=== PATIENT | male | born 2000 | race Caucasian/White ===

== ENCOUNTER 2025-04-13 12:44 | Emergency (ER) | payer OTHER, SELFPAY ==
--- NOTE | ~2025-04-13 | US_ITS ---
Clinical history:Left testicular pain for one day. Nausea and vomiting. EXAM:Ultrasound scrotum Doppler TECHNIQUE:Multiple static grayscale images and color Doppler images were obtained of the scrotum. Comparisons:None FINDINGS: Right testicle measures 4.8 x 1.9 x 2.5 cm. The right epididymis is unremarkable. Tiny right-sided hydrocele. Normal vascular flow in the right testicle. No testicular mass identified. Left testicle measures 4.3 x 3.0 x 2.7 cm. Left epididymis is heterogeneous and enlarged. Moderate sized complicated left-sided hydrocele. Prominent vascular flow in the left testicle. No testicular mass identified. No varicocele identified. IMPRESSION: 1. Sonographic findings suggest left-sided epididymoorchitis. Recommend follow- up to resolution. 2. Moderate-sized complicated left-sided hydrocele. Reviewed, dictated and finalized at location [facility].
[2025-04-13 12:47] VITALS: BP 136/64; PULSE 58; RESP 17; TEMP 36.6; O2SAT 100
--- NOTE | 2025-04-13 13:04 | PC.NURSE ---
Pt given urine cup and asked to give urine sample.
[2025-04-13 14:00] LABS: Add Urine Microscopic? YES; Appearance Urine Turbid (Clear); Glucose Urine UA Negative (Negative); Leukocyte Esterase Ur Negative LEU/UL (Negative); Nitrate Urine Negative (Negative); Non Pathogenic Casts 0-2; Specific Grav Ur 1.025 (1.001-1.035)
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
[2025-04-13] MEDS: cefTRIAXone 1 GM VIAL 0.5 GM IM (14:46)
[2025-04-13] MEDS: DOXYCYCLINE HYCLATE 100 MG TABLET PO (14:47)
== END 2025-04-13 14:55 | disposition home or self-care (01) ==
PROVIDERS: Emergency Provider Emergency Medicine; PCP Nurse Practitioner
DX: N45.3 Epididymo-orchitis (principal); N43.3 Hydrocele, unspecified
CPT/HCPCS: 76870; 81001; 87491; 87591; 93976; 96372; 99284; A9270; J0696; J2003